=== PATIENT | male | born 1970 | race Caucasian/White ===

== ENCOUNTER → 2024-09-24 11:31 | Outpatient (REF) | payer BC, SELFPAY | LOC: HWRAD 11:31 | PROVIDERS: ATTENDING PHYSICIAN Student in an Organized Health Care Education/Training Program | DX: M25.562 Pain in left knee (principal) | CPT/HCPCS: 73564 ==

== ENCOUNTER 2025-05-16 17:44 | Emergency (ER) | payer BC, SELFPAY ==
[2025-05-16 17:48] VITALS: BP 188/109
[2025-05-16 17:52] VITALS: BP 208/116
--- NOTE | 2025-05-16 18:58 | ED.GENMED ---
History of Present Illness
General
Chief Complaint: Head Injury
Source: patient
Exam Limitations: none
Time Seen by Provider: 05/16/25 18:36
History of Present Illness
History of Present Illness:
54yoM with no significant past medical history presenting for evaluation after head injury about 1.5 hours ago. Patient was walking in his driveway trying to move his car into the garage when he slipped on black ice. He struck the back of his head
against the ground. There was no loss of consciousness and patient was able to get up immediately after the fall. He sustained a scalp laceration during the fall. He currently has a minor headache but is otherwise asymptomatic. He denies any
dizziness, vomiting, neck pain, back pain, shortness of breath. He does not take any blood thinners. Last Tdap was in 2023. He has a prior history of a cervical fusion.
Past History
Social History
Tobacco: Non-smoker
Personal:
Living: with family
Phy Exam
General Physical Exam
General Presentation: well appearing and no apparent distress
General age: appears stated age
General Skin: warm and dry
General Habitus: normal
General Mental: alert
ENT Exam
ENT Exam: other (Approx 5cm jagged occipital scalp laceration noted with active bleeding and underlying hematoma.)
Additional ENT: No cervical spine tenderness with full ROM.
Eye Exam
Eye Exam: PERRL
Pulmonary Exam
Pulmonary Exam: no respiratory distress
Neurological Exam
Neurological Exam: alert, no motor deficits and speech normal
[place] Coma Scale
Eye Opening: Spontaneous
Verbal Response: Oriented
Motor Response: Obeys Commands
GCS Total Score: 15
Skin Exam
Skin Exam: normal color and warm/dry
Psychiatric Exam
Psychiatric Exam: normal mood/affect
Course
Orders/Labs/Results
Orders:
Orders
05/16/25 17:[address] [CT Head W/o Iv Contrast] Urgent
Comment: fall slip on ice hitting head on ground
Reason For Exam: head injury,
05/16/25 17:52
CR Cervical Spine 2 or 3 Vw Urgent
Reason For Exam: S/P fall head injury
05/16/25 18:57
Ice Pack-Treatment DIRECTED
Location: scalp hematoma
Acetaminophen [Tylenol Oral Solution] 650 mg PO NOW STA
Vital Signs
Initial and Last Documented VS:
Initial Vital Signs
Temp Pulse Resp BP Pulse Ox
97.7 F 74 20 188/109 100
05/16/25 17:48 05/16/25 17:48 05/16/25 17:48 05/16/25 17:48 05/16/25 17:48
Last Documented Vital Signs
Temp Pulse Resp BP Pulse Ox
97.7 F 74 20 208/116 100
05/16/25 17:48 05/16/25 17:48 05/16/25 17:48 05/16/25 17:52 05/16/25 19:00
Procedures
Laceration Closure
Posterior Scalp:
Status of Wound: clean
Size of Wound in cm: 5
Description of Wound Edges: ragged
Preparation: cleaned with saline
Anesthesia: 1% Lidocaine with epi
Wound exploration: explored to base- no FB
Type of Closure: single layer closure
Skin Closure Material: skin manjeet
Number of sutures: 7
MDM/Problems Addressed
Differential Diagnosis Includes:
54yoM here after a fall with slip on ice. +Head strike with scalp laceration. No LOC or blood thinners. Occipital scalp laceration noted on exam with underlying hematoma. Cervical spine cleared via NEXUS criteria. Differential diagnosis includes:
skull fracture, intracranial hemorrhage, concussion
Initial ED plan: Cervical x-rays obtained in triage although he is denying any neck pain. No fractures seen per my interpretation. Will repair scalp laceration and check head CT.
*Pulse Oximetry
SaO2: 100
Oxygen Mode of Delivery: Room air
Patient hypoxic: no
*Critical Care Note
Total Time (30-74mins, 75-104mins- exclusive of procedures): Not Applicable
Update Note
Update Note:
Scalp laceration cleaned and repaired as above. CT head negative for acute traumatic injuries. Patient stable for discharge. He was instructed to have manjeet removed in 1 week and ED return precautions reviewed.
ED Attending Note
-
Portions of this chart may have been created with voice recognition software.� Occasional wrong word or��sound alike� substitutions may have occurred due to the inherent limitations of voice recognition software.
Discharge Plan
Departure
Patient Disposition: Home (Routine Discharge)
Date of Disposition: 05/16/25
Time of Disposition: 20:24
Patient with high blood pressure during this ER visit?: Yes
Discharge Problem:
Head injury, Laceration of scalp
Instructions: Head Injury in Adults (DC), Laceration Repair With Mcconnells (DC)
Referrals:
Kelby Black MD [Family Provider, Radiology]
Activity Restrictions/Additional Instructions:
Your blood pressure was elevated today. Please follow-up with your family doctor to recheck this.
Mcconnells will need to be removed in 1 week. Return to the ER with any signs of infection, confusion, or other concerns.
Interventions
Interventions:
*ED COVID-19 Vaccine History Last Done: 05/16/25 17:48
*ED Influenza Vaccine History Last Done: 05/16/25 17:48
*Risk Screen - Suicide (C-SSRS) Last Done: 05/16/25 17:48
*Nursing Disposition Last Done: 05/16/25 20:29
ED- Neurological Assessment Last Done: 05/16/25 20:19
ED-Skin Assessment Last Done: 05/16/25 20:19
Discharge Date and Time
Discharge Date/Time: 05/16/25 20:32
Print Language: SWAZI
[2025-05-16] MEDS: TYLENOL ORAL SOLUTION 650 MG PO (19:03)
== END 2025-05-16 20:32 | disposition home or self-care (01) ==
LOC: EMR 17:44
PROVIDERS: EMERGENCY PHYSICIAN Emergency Medicine; FAMILY PHYSICIAN Radiology Radiation Oncology
DX: S09.90XA Unspecified injury of head, initial encounter (principal); S01.01XA Laceration without foreign body of scalp, initial encounter; S00.03XA Contusion of scalp, initial encounter; R51.9 Headache, unspecified; W00.0XXA Fall on same level due to ice and snow, initial encounter; Y93.01 Activity, walking, marching and hiking; R03.0 Elevated blood-pressure reading, without diagnosis of hypertension; M43.22 Fusion of spine, cervical region
CPT/HCPCS: 99284; 12002; 70450; 72040